=== PATIENT | female | born 1975 | race African-American/Black ===

== ENCOUNTER 2021-10-26 08:49 | Outpatient (CLI) | payer BC | END 2021-10-26 08:50 | disposition home or self-care (01) | LOC: MRI 08:49 | PROVIDERS: ATTEND Student in an Organized Health Care Education/Training Program | DX: N80.0 Endometriosis of uterus (principal); D25.9 Leiomyoma of uterus, unspecified | CPT/HCPCS: 72197 ==

== ENCOUNTER 2022-02-06 10:18 | Outpatient (CLI) | payer BC | END 2022-02-06 10:19 | disposition home or self-care (01) | LOC: BICMAMMO 10:18 | PROVIDERS: ATTEND Student in an Organized Health Care Education/Training Program | DX: R92.8 Other abnormal and inconclusive findings on diagnostic imaging of breast (principal); N64.89 Other specified disorders of breast | CPT/HCPCS: G0279 ==